=== PATIENT | female | born 1990 | race Caucasian/White ===

== ENCOUNTER → 2024-02-23 | Outpatient (CLI) | payer OTHER ==
[2024-02-23 15:42] LABS: ALT 15 U/L (8-44); AST 14 U/L (13-35); Albumin 4.4 g/dL (3.8-4.9); Albumin/Globulin Ratio 1.69 Ratio (1.60-3.17); Alkaline Phosphatase 65 U/L (41-126); BUN/Creat Ratio 21.88 Ratio (12.00-20.00); Blood Urea Nitrogen 17.5 mg/dL (9.0-27.0); Calcium 9.3 mg/dL (8.7-10.3); Carbon Dioxide 29.5 mmol/L (21.6-31.8); Chloride 100 mmol/L (96-109); Chol/HDL Ratio 3.79 Ratio; Globulin 2.6 g/dL (1.6-3.3); Glucose 86 mg/dL (70-110); LDL Cholesterol,Calculated 67.2 mg/dL (0.0-131.0); Potassium 4.2 mmol/L (3.5-5.5); Sodium 139 mmol/L (135-145); T4, Free (Free Thyroxine) 0.78 ng/dL (0.80-1.80); Total Bilirubin 0.3 mg/dL (0.3-1.2)
== END | disposition home or self-care (01) ==
LOC: LABWHC1 09:46
PROVIDERS: ATTEND Internal Medicine Endocrinology, Diabetes & Metabolism
CPT/HCPCS: 36415; 80053; 80061; 84439; 84443